=== PATIENT | male | born 1975 | race Two or more races ===

== ENCOUNTER 2021-07-31 08:15 | Emergency (ER) | payer OTHER ==
[~2021-07-31] VITALS: Ht 170.2 cm; Wt 77.1 kg
[2021-07-31] MEDS ORDERED: KETOROLAC TROMETH 60MG/2ML VIAL IM ONE (11:30)
[2021-07-31] MEDS ORDERED: MORPHINE SULFATE INJECTION 2 MG/ML SYRG IM ONE (11:45)
[2021-07-31] MEDS ORDERED: ONDANSETRON ODT 4 MG TAB PO ONE (11:45)
[2021-07-31 12:19] VITALS: BP 144/81
[2021-07-31 12:30] LABS: Basophils # (auto) 0 10 ^3/uL (0-0.2); Basophils % (auto) 0.3 % (0.0-2.0); Eosinophils # (auto) 0 10 ^3/uL (0-0.8); Eosinophils % (auto) 0.2 % (0.0-7.0); Hematocrit 43.9 % (41.0-53.0); Hemoglobin 14.4 g/dL (13.5-17.5); Lymphocytes # (auto) 1.8 10 ^3/uL (0.4-5.4); Lymphocytes % (auto) 19.8 % (10.0-50.0); Mean Corpuscular Hemoglobin 29.9 pg (28.0-32.0); Mean Corpuscular Hgb Conc. 32.9 g/dL (32.0-36.0); Mean Corpuscular Volume 90.9 fL (80.0-100.0); Monocytes # (auto) 0.7 10 ^3/uL (0-1.3); Monocytes % (auto) 7.6 % (0.0-12.0); Neutrophils # (auto) 6.6 10 ^3/uL (1.6-8.6); Neutrophils % (auto) 72.1 % (37.0-80.0); Red Blood Cells 4.83 10^6/uL (4.5-5.90); White Blood Cell 9.2 10^3/uL (4.4-10.8)
[2021-07-31 12:47] LABS: Albumin 3.8 g/dL (3.4-5.0); Calcium 8.3 mg/dL (8.5-10.1); Potassium 4.1 mmol/L (3.5-5.1)
[2021-07-31 12:49] LABS: BUN/Creatinine Ratio 24.7
[2021-07-31 12:51] LABS: Bilirubin, Total 0.7 mg/dL (0.2-1.0); Total Protein 7.6 g/dL (6.4-8.2)
[2021-07-31] MEDS ORDERED: IOHEXOL 300 MG/ML 100ML BOTTLE IJ ONE (14:30)
== END 2021-07-31 16:37 | disposition home or self-care (01) ==
LOC: ER 08:15
DX: K62.89 Other specified diseases of anus and rectum (principal); K64.9 Unspecified hemorrhoids
CPT/HCPCS: 36415; 72193; 74018; 80053; 85025; 96372; 99285; J1885; J2270; Q0162; Q9967